=== PATIENT | male | born 1965 | race Caucasian/White ===

== ENCOUNTER 2017-01-17 07:22 | Outpatient (CLI) | payer BC ==
[2017-01-17 10:51] LABS: ALBUMIN/GLOBULIN RATIO 1.1 (1.0-2.2); BILIRUBIN,TOTAL 1.1 mg/dL (0.2-1.0); BUN - BLOOD UREA NITROGEN 15 mg/dL (6-20); CALCIUM 8.9 mg/dL (8.5-10.3); CARBON DIOXIDE - CO2 28 mmol/L (21-32); CHLORIDE 104 mmol/L (101-111); CHOL/HDL RATIO 5.2 (<5.0); CHOLESTEROL 167 mg/dL; CREATININE 0.8 mg/dL (0.6-1.2); GFR - MDRD 101 (>89); GLUCOSE 191 mg/dL (70-100); HDL CHOLESTEROL 32 mg/dL; LDL/HDL RATIO 3.8 (<3.6); SODIUM 138 mmol/L (135-145); TOTAL PROTEIN 7.1 g/dL (6.7-8.2); TRIGLYCERIDES 76 mg/dL; VLDL CHOLESTEROL 15 mg/dL
[2017-01-17 11:15] LABS: HEMOGLOBIN A1C 1.61 g/dL
== END 2017-01-17 07:23 | disposition home or self-care (01) ==
LOC: LAB.F 07:22
PROVIDERS: ATTEND Internal Medicine
DX: I10 Essential (primary) hypertension (principal)
CPT/HCPCS: 36415; 80053; 80061; 82043; 82570; 83036

== ENCOUNTER 2017-05-21 23:02 | Emergency (ER) | payer BC ==
--- NOTE | 2017-05-21 23:27 | ED Physician Documentation ---
PD HPI CHEST PAIN - Stated complaint Stated Complaint: SOA,TIGHTNESS CHEST - Chief complaint Chief Complaint: Cardiac - History obtained from History obtained from: Patient, Family - History of Present Illness Timing - onset: How many days ago (4) Timing - onset during: Exertion Timing - details: Gradual onset, Intermittant Quality: Pressure Location: Substernal, Left chest, Right chest Worsened by: Exertion Associated symptoms: No: Diaphoresis, Nausea, Vomiting, Feeling faint / dizzy Similar symptoms before: No diagnosis Recently seen: Not recently seen - Additional information Additional information: Patient is a 52 year old male with a history of diabetes, htn who is non compliant with all of his medications who is presenting to the emergency department for intermittent chest pain. According to patient and family over the last few days patient has had chest tightness with walking. Patient states that he has had upper respiratory symptoms over the past week. Patient states that he finally came in today because he told his about his symptoms and she made sure he came in for evaluation. Upon initial evaluation in the emergency department patient is resting comfortably and is chest pain free. Review of Systems Constitutional: denies: Fever, Chills Eyes: denies: Decreased vision Ears: denies: Ear pain, Drainage/discharge Nose: denies: Congestion Throat: denies: Sore throat Cardiac: reports: Chest pain / pressure. denies: Palpitations, Calf pain Respiratory: reports: Cough. denies: Wheezing GI: denies: Nausea, Vomiting : denies: Dysuria, Frequency Skin: denies: Rash Musculoskeletal: denies: Extremity pain, Extremity swelling Neurologic: denies: Generalized weakness, Focal weakness, Numbness, Headache, Head injury Immunocompromised: denies: Immunocompromised PD PAST MEDICAL HISTORY - Past Medical History Past Medical History: Yes Cardiovascular: Hypertension, High cholesterol Endocrine/Autoimmune: Type 1 diabetes - Allergies Allergies/Adverse Reactions: Allergies Allergy/AdvReac Type Severity Reaction Status Date / Time No Known Drug Allergies Allergy Verified 05/21/17 23:10 - Social History Does the pt smoke?: No Smoking Status: Never smoker Does the pt drink ETOH?: No Does the pt have substance abuse?: No - POLST Patient has POLST: No PD ED PE NORMAL - Vitals Vital signs reviewed: Yes - General General: Alert and oriented X 3, No acute distress - HEENT HEENT: Atraumatic, PERRL - Neck Neck: Supple, no meningeal sign, No JVD - Cardiac Cardiac: RRR, No murmur - Respiratory Respiratory: No respiratory distress, Clear bilaterally - Abdomen Abdomen: Soft, Non tender, Non distended - Derm Derm: Normal color, Warm and dry, No rash - Extremities Extremities: No deformity, Normal ROM s pain, No calf tenderness / cord - Neuro Neuro: Alert and oriented X 3, No motor deficit, No sensory deficit, Normal speech Eye Opening: Spontaneous Motor: Obeys Commands Verbal: Oriented GCS Score: 15 Results - Vitals Vitals: Vital Signs - 24 hr 05/21/17 05/22/17 23:06 01:30 Temperature 37 C Heart Rate 70 62 Respiratory 20 18 Rate Blood Pressure 155/83 H 137/75 H O2 Saturation 100 98 Oxygen O2 Source Room air - EKG (time done) 2313 Rate: Rate (enter#) (68) Rhythm: NSR [place]: Normal Intervals: Normal OR QRS: Normal Ischemia: Normal ST segments - Labs Labs: Laboratory Tests 05/21/17 05/21/17 05/21/17 23:30 23:30 23:30 WBC 12.6 H RBC 4.62 L Hgb 13.8 L Hct 42.9 MCV 92.9 MCH 30.0 MCHC 32.3 RDW 13.8 Plt Count 181 MPV 8.8 Neut # 8.3 H Lymph # 2.3 [place] # 1.2 H Eos # 0.6 Baso # 0.2 H Absolute Nucleated RBC 0.00 Nucleated RBC % 0.0 D-Dimer Sodium 138 Potassium 3.5 Chloride 103 Carbon Dioxide 26 Anion Gap 9.0 BUN 10 Creatinine 0.8 Estimated GFR (MDRD) 101 Glucose 121 H Glycated Hemoglobin 9.2 H Estim Average Glucose 217 H Calcium 8.7 Phosphorus 3.5 Magnesium 1.9 Total Bilirubin 0.2 AST 14 ALT 14 Alkaline Phosphatase 69 Troponin I B-Natriuretic Peptide Total Protein 6.8 Albumin 3.6 Globulin 3.2 Albumin/Globulin Ratio 1.1 Lipase 16 L 05/21/17 05/21/17 05/21/17 23:30 23:30 23:35 WBC RBC Hgb Hct MCV MCH MCHC RDW Plt Count MPV Neut # Lymph # [place] # Eos # Baso # Absolute Nucleated RBC Nucleated RBC % D-Dimer 174.9 L Sodium Potassium Chloride Carbon Dioxide Anion Gap BUN Creatinine Estimated GFR (MDRD) Glucose Glycated Hemoglobin Estim Average Glucose Calcium Phosphorus Magnesium Total Bilirubin AST ALT Alkaline Phosphatase Troponin I 0.04 B-Natriuretic Peptide 63 Total Protein Albumin Globulin Albumin/Globulin Ratio Lipase 05/22/17 01:06 WBC RBC Hgb Hct MCV MCH MCHC RDW Plt Count MPV Neut # Lymph # [place] # Eos # Baso # Absolute Nucleated RBC Nucleated RBC % D-Dimer Sodium Potassium Chloride Carbon Dioxide Anion Gap BUN Creatinine Estimated GFR (MDRD) Glucose Glycated Hemoglobin Estim Average Glucose Calcium Phosphorus Magnesium Total Bilirubin AST ALT Alkaline Phosphatase Troponin I < 0.04 B-Natriuretic Peptide Total Protein Albumin Globulin Albumin/Globulin Ratio Lipase - Rads (name of study) chest x-ray Radiology: Final report received (no acute abnormality) PD MEDICAL DECISION MAKING - ED course Complexity details: reviewed old records, reviewed results, re-evaluated patient , considered differential, d/w patient, d/w family ED course: Patient was seen and examined at bedside. patient was well appearing and in no acute distress. ekg was performed and showed normal sinus rhythm. labs were drawn. chest x-ray was performed and showed no acute abnormalities. Patient's diagnostics including repeat troponin, bnp and d dimer were all within normal limits. Patient's HEART score was three. Patient required no further inpatient treatment at this time and was stable for discharge with close outpatient follow up. Departure - Departure Disposition: 01 Home, Self Care Clinical Impression: Atypical chest pain Condition: Good Instructions: ED Chest Pain Atypical Unkn Cause Follow-Up: primary,care provider [Other] - Within 3 Days Comments: Your diagnostics today were within normal limits. there was no indication of acute heart attack, heart failure or blood clot. that being said this is a snap shot in time and you should follow up with your doctor for a stress test and echo-cardiogram. You should return to the emergency department at any time for new, worsening or uncontrollable symptoms.
[2017-05-21 23:48] LABS: BASOPHILS # (AUTO) 0.2 10^3/uL (0.0-0.1); BASOPHILS % (AUTO) 1.3 %; EOSINOPHILS # (AUTO) 0.6 10^3/uL (0.0-0.7); EOSINOPHILS % (AUTO) 4.7 %; HGB - HEMOGLOBIN 13.8 g/dL (14.0-18.0); LYMPHOCYTES # (AUTO) 2.3 10^3/uL (1.5-3.5); LYMPHOCYTES % (AUTO) 18.6 %; MEAN CORPUSCULAR HGB CONC 32.3 g/dL (32.0-36.0); MEAN CORPUSCULAR VOLUME 92.9 fL (80.0-94.0); MEAN PLATELET VOLUME 8.8 fL (7.4-11.4); MONOCYTES # (AUTO) 1.2 10^3/uL (0.0-1.0); MONOCYTES % (AUTO) 9.9 %; NEUTROPHILS # (AUTO) 8.3 10^3/uL (1.5-6.6); NEUTROPHILS % (AUTO) 65.5 %; PLT - PLATELET COUNT 181 10^3/uL (130-450); RED BLOOD COUNT 4.62 10^6/uL (4.70-6.10); RED CELL DISTRIBUTION WIDTH 13.8 % (12.0-15.0); WHITE BLOOD COUNT 12.6 x10^3/uL (4.8-10.8)
--- NOTE | 2017-05-21 23:49 | XRAY Report ---
EXAM: CHEST RADIOGRAPHY EXAM DATE: 05/21/2017 11:45 PM. CLINICAL HISTORY: Chest pain. COMPARISON: None. TECHNIQUE: 1 view. FINDINGS: Lungs/Pleura: No focal opacities evident. No pleural effusion. No pneumothorax. Mediastinum: Within exam limitations, the cardiomediastinal contour is normal. Other: None. IMPRESSION: Normal single view chest. [facility] Referring Provider Line: [phone] SITE ID: [id number]
[2017-05-22] LABS: ALBUMIN 3.6 g/dL (3.2-5.5); ALBUMIN/GLOBULIN RATIO 1.1 (1.0-2.2); BILIRUBIN,TOTAL 0.2 mg/dL (0.2-1.0); CALCIUM 8.7 mg/dL (8.5-10.3); CREATININE 0.8 mg/dL (0.6-1.2); MAGNESIUM 1.9 mg/dL (1.7-2.8); PHOSPHORUS 3.5 mg/dL (2.5-4.6); TOTAL PROTEIN 6.8 g/dL (6.7-8.2)
[2017-05-22 01:10] LABS: HEMOGLOBIN A1C 1.15 g/dL; HEMOGLOBIN A1C % 9.2 % (4.6-6.2)
[2017-05-22 01:31] VITALS: BP 137/75
== END 2017-05-22 02:07 | disposition home or self-care (01) ==
LOC: ED 23:02
DX: R07.89 Other chest pain (principal); I10 Essential (primary) hypertension; E78.5 Hyperlipidemia, unspecified; E10.9 Type 1 diabetes mellitus without complications; Z91.14 Patient's other noncompliance with medication regimen
CPT/HCPCS: 36415; 71045; 80053; 83036; 83690; 83735; 83880; 84100; 84484; 85025; 85379; 93005; 99283

== ENCOUNTER 2018-02-15 12:37 | Outpatient (CLI) | payer BC ==
[2018-02-15 18:16] LABS: BASOPHILS # (AUTO) 0.1 10^3/uL (0.0-0.1); BASOPHILS % (AUTO) 0.9 %; EOSINOPHILS # (AUTO) 0.4 10^3/uL (0.0-0.7); EOSINOPHILS % (AUTO) 3.7 %; LYMPHOCYTES # (AUTO) 1.9 10^3/uL (1.5-3.5); LYMPHOCYTES % (AUTO) 19.4 %; MEAN CORPUSCULAR HEMOGLOBIN 29.3 pg (27.0-31.0); MEAN CORPUSCULAR HGB CONC 33.3 g/dL (32.0-36.0); MEAN CORPUSCULAR VOLUME 88.2 fL (80.0-94.0); MEAN PLATELET VOLUME 9.6 fL (7.4-11.4); MONOCYTES # (AUTO) 0.8 10^3/uL (0.0-1.0); MONOCYTES % (AUTO) 7.8 %; NEUTROPHILS # (AUTO) 6.8 10^3/uL (1.5-6.6); NEUTROPHILS % (AUTO) 68.2 %; PLT - PLATELET COUNT 176 10^3/uL (130-450); RED BLOOD COUNT 4.76 10^6/uL (4.70-6.10); WHITE BLOOD COUNT 9.9 x10^3/uL (4.8-10.8)
[2018-02-15 19:23] LABS: HB2 TOTAL 14.6 g/dL; HEMOGLOBIN A1C 0.94 g/dL
== END 2018-02-15 12:38 | disposition home or self-care (01) ==
LOC: LAB.F 12:37
PROVIDERS: ATTEND Internal Medicine Endocrinology, Diabetes & Metabolism
DX: E10.69 Type 1 diabetes mellitus with other specified complication (principal)
CPT/HCPCS: 36415; 81599; 83036; 84402; 84403; 84443; 85025

== ENCOUNTER 2019-03-04 08:30 | Day surgery (SDC) | payer BC ==
[2019-03-04] MEDS ORDERED: LACTATED RINGERS 1,000 ML IV ONE (08:35)
[2019-03-04] MEDS ORDERED: fentaNYL 250 MCG/5 ML VIAL IVP ONE (10:21)
[2019-03-04] MEDS ORDERED: MIDAZOLAM 2 MG/2 ML VIAL IVP ONE (10:21)
[2019-03-04 11:12] VITALS: BP 99/53
== END 2019-03-04 08:31 | disposition home or self-care (01) ==
LOC: SDS 08:30
PROVIDERS: ATTEND Internal Medicine Gastroenterology
PROC: 0DBL8ZZ Excision of Transverse Colon, Via Natural or Artificial Opening Endoscopic (ICD-10-PCS; 2019-03-04)
PROC: 0DBP8ZZ Excision of Rectum, Via Natural or Artificial Opening Endoscopic (ICD-10-PCS; principal; 2019-03-04 10:00)
DX: Z12.11 Encounter for screening for malignant neoplasm of colon (principal); D12.3 Benign neoplasm of transverse colon; K62.1 Rectal polyp; E10.9 Type 1 diabetes mellitus without complications; I10 Essential (primary) hypertension; I25.10 Atherosclerotic heart disease of native coronary artery without angina pectoris; E66.9 Obesity, unspecified; Z68.30 Body mass index [BMI] 30.0-30.9, adult
CPT/HCPCS: 45380; J3010; J7120

== ENCOUNTER 2020-06-29 17:21 | Outpatient (CLI) | payer BC | END 2020-06-29 17:22 | disposition home or self-care (01) | LOC: COV 17:21 | PROVIDERS: ATTEND Family Medicine | DX: R50.9 Fever, unspecified (principal); Z20.822 Contact with and (suspected) exposure to COVID-19 ==

== ENCOUNTER 2020-09-16 19:14 | Emergency (ER) | payer BC ==
[2020-09-16 19:49] LABS: BASOPHILS # (AUTO) 0.1 10^3/uL (0.0-0.1); BASOPHILS % (AUTO) 0.3 %; EOSINOPHILS % (AUTO) 0.2 %; HCT - HEMATOCRIT 46.6 % (42.0-52.0); HGB - HEMOGLOBIN 15.4 g/dL (14.0-18.0); LYMPHOCYTES # (AUTO) 0.7 10^3/uL (1.5-3.5); LYMPHOCYTES % (AUTO) 4.9 %; MEAN CORPUSCULAR HEMOGLOBIN 29.7 pg (27.0-31.0); MEAN CORPUSCULAR VOLUME 89.8 fL (80.0-94.0); MEAN PLATELET VOLUME 9.6 fL (7.4-11.4); MONOCYTES # (AUTO) 0.8 10^3/uL (0.0-1.0); MONOCYTES % (AUTO) 5.6 %; NEUTROPHILS # (AUTO) 12.9 10^3/uL (1.5-6.6); NEUTROPHILS % (AUTO) 88.5 %; PLT - PLATELET COUNT 168 10^3/uL (130-450); RED BLOOD COUNT 5.19 10^6/uL (4.70-6.10); RED CELL DISTRIBUTION WIDTH 13.2 % (12.0-15.0); WHITE BLOOD COUNT 14.6 x10^3/uL (4.8-10.8)
[2020-09-16] MEDS ORDERED: SODIUM CHLORIDE 0.9% 1,000 ML IV STA ×2 (19:53→20:34)
[2020-09-16] MEDS ORDERED: ACETAMINOPHEN 325 MG TABLET PO STA (19:53)
[2020-09-16 20:03] LABS: BILIRUBIN,TOTAL 0.6 mg/dL (0.2-1.0); CREATININE 0.9 mg/dL (0.6-1.2); POTASSIUM 4.1 mmol/L (3.5-5.0); TOTAL PROTEIN 7.9 g/dL (6.7-8.2)
[2020-09-16 20:05] LABS: LACTIC ACID, VENOUS 3.2 mmol/L (0.5-2.2)
--- NOTE | 2020-09-16 20:06 | XRAY Report ---
PROCEDURE: Chest 1 View X-Ray INDICATIONS: fever TECHNIQUE: One view of the chest was acquired. COMPARISON: 05/21/2017 FINDINGS: Surgical changes and devices: Interval CABG. Lungs and pleura: No pleural effusions or pneumothorax. Lungs are clear. Mediastinum: Mediastinal contours appear normal. Heart size is normal. Bones and chest wall: No suspicious bony lesions. Overlying soft tissues appear unremarkable. IMPRESSION: No evidence acute pulmonary process. Reviewed by: Enzo Christianson MD on 09/16/2020 8:05 PM PDT Approved by: Enzo Christianson MD on 09/16/2020 8:05 PM PDT Station ID: [id number]
[2020-09-16 20:58] LABS: BILIRUBIN,URINE NEGATIVE (NEGATIVE); GLUCOSE, URINE (UA) >=1000 mg/dL (NEGATIVE); KETONES,URINE (UA) TRACE mg/dL (NEGATIVE); LEUKOCYTE ESTERASE, URINE NEGATIVE (NEGATIVE); NITRITE,URINE NEGATIVE (NEGATIVE); OCCULT BLOOD,URINE NEGATIVE (NEGATIVE); PH,URINE 5.5 PH (5.0-7.5); PROTEIN,URINE NEGATIVE (NEGATIVE); UROBILINOGEN,URINE 0.2 (NORMAL) E.U./dL (NORMAL)
[2020-09-16 21:00] LABS: CLARITY,URINE CLEAR (CLEAR)
[2020-09-16 21:07] LABS: BACTERIA,URINE Rare /HPF (None Seen); RBC,URINE None Seen /HPF (0-5); SQUAMOUS EPITHELIAL CELL,UR RARE Squamous (<= Few)
[2020-09-16 21:46] LABS: B. PARAPERTUSSIS- RESP PCR PAN NOT DETECTED; B. PERTUSSIS- RESP PCR PANEL NOT DETECTED; C. PNEUMONIAE- RESP PCR PANEL NOT DETECTED; CORONAVIRUS 229E-RESP PCR NOT DETECTED; CORONAVIRUS HKU1-RESP PCR NOT DETECTED; CORONAVIRUS NL63-RESP PCR NOT DETECTED; CORONAVIRUS OC43-RESP PCR NOT DETECTED; HUMAN METAPNEUMOVIRUS NOT DETECTED; INFLUENZA A- RESP PCR PANEL NOT DETECTED; INFLUENZA B - RESP PCR PANEL NOT DETECTED; M. PNEUMONIAE- RESP PCR PANEL NOT DETECTED; PARAINFLUENZA VIRUS 1 NOT DETECTED; PARAINFLUENZA VIRUS 2 NOT DETECTED; PARAINFLUENZA VIRUS 3 NOT DETECTED; PARAINFLUENZA VIRUS 4 NOT DETECTED; RHINOVIRUS/ENTEROVIRUS NOT DETECTED; RSV- RESP PCR PANEL NOT DETECTED; SARS-CoV-2 -RESP PCR PANEL NOT DETECTED
--- NOTE | 2020-09-17 | ED Physician Documentation ---
History of Present Illness - Stated complaint Stated Complaint: FEVER/CROWDER - Chief complaint Chief Complaint: Fever - History obtained from History obtained from: Patient, Family - Additonal information Additional information: Patient comes emergency department chief complaint of fever and malaise with right medial thigh pain that started a couple of days ago. Patient states that he had been going about his day as usual when in the evening he began to notice a sense of chills and tiredness. Patient states that he went to bed and felt better in the morning, but then began to feel the same way the next evening. Patient states that he did not have as much of an appetite as usual, but otherwise, did not have any focal symptoms, such as cough, shortness of breath, abdominal pain, nausea vomiting, or dysuria. Patient states he got his Covid vaccine within the last couple of months. Patient states that the pain in his right mid medial thigh is right over the area where venous harvesting was done for the patient's bypass surgery that he had a few years ago. He denies any redness or swelling/induration around the area. The patient and decided to have the patient see his PCP this morning. Patient's PCP felt the patient was tachycardic and his blood pressure was up, and was going to start metoprolol, but then felt the patient should be evaluated here. He did call me to relay this report. Patient states that he still has some general malaise but otherwise, denies complaints at this time. He has a diabetic, but is not immunocompromised otherwise. No sick contacts that patient knows of. Review of Systems Ten Systems: 10 systems reviewed and negative Constitutional: reports: Fever, Chills, Fatigue Eyes: reports: Reviewed and negative Ears: reports: Reviewed and negative Nose: reports: Reviewed and negative Throat: reports: Reviewed and negative Cardiac: reports: Reviewed and negative Respiratory: reports: Reviewed and negative. denies: Dyspnea, Cough GI: reports: Reviewed and negative. denies: Nausea, Vomiting : reports: Reviewed and negative Skin: reports: Reviewed and negative Musculoskeletal: reports: Extremity pain Neurologic: reports: Reviewed and negative Psychiatric: reports: Reviewed and negative Endocrine: reports: Reviewed and negative Immunocompromised: reports: Reviewed and negative PD PAST MEDICAL HISTORY - Past Medical History Past Medical History: Yes Cardiovascular: Hypertension, High cholesterol Endocrine/Autoimmune: Type 1 diabetes - Past Surgical History Past Surgical History: Yes Cardiovascular: CABG - Present Medications Home Medications: Ambulatory Orders Medication Instructions Recorded Confirmed Aspirin [Adult Low Dose Aspirin EC] 81 mg PO DAILY 03/04/19 09/16/20 Atorvastatin Calcium 80 mg PO DAILY 03/04/19 09/16/20 Insulin Aspart (Vial) [NovoLOG units SUBQ DAILY 03/04/19 (VIAL FOR ED USE)] Losartan Potassium 25 mg PO DAILY 03/04/19 09/16/20 Amlodipine Besylate [Norvasc] 10 mg PO DAILY 09/16/20 09/16/20 - Allergies Allergies/Adverse Reactions: Allergies Allergy/AdvReac Type Severity Reaction Status Date / Time lisinopril Allergy Mild Unknown Verified 09/16/20 19:22 - Social History Does the pt smoke?: No Smoking Status: Never smoker Does the pt drink ETOH?: No Does the pt have substance abuse?: No - POLST Patient has POLST: No PD ED PE NORMAL - Vitals Vital signs reviewed: Yes - General General: Alert and oriented X 3, No acute distress - HEENT HEENT: Atraumatic, PERRL, EOMI, Moist mucous membranes - Neck Neck: Supple, no meningeal sign - Cardiac Cardiac: RRR, No murmur, Strong equal pulses - Respiratory Respiratory: No respiratory distress, Clear bilaterally - Abdomen Abdomen: Soft, Non tender, Non distended - Back Back: No CVA TTP - Derm Derm: Normal color, Warm and dry, No rash - Extremities Extremities: No deformity, No edema, No calf tenderness / cord, Other (Tenderness over mid right medial thigh without mass, induration, fluctuance, or erythema. Tissue is soft and other than tenderness, is completely normal on exam.) - Neuro Neuro: Alert and oriented X 3, dental patient coordinator 2-12 intact, Normal speech, Other (Grossly normal otherwise.) - Psych Psych: Normal mood, Normal affect Results - Vitals Vitals: Oxygen O2 Source Room air - Labs Labs: Microbiology 09/16/20 19:44 Blood Culture - Preliminary Blood - Right Iv-Start NO GROWTH AFTER 2 DAYS 09/16/20 19:44 Blood Culture - Preliminary Blood - Left Arm NO GROWTH AFTER 2 DAYS Laboratory Tests 09/16/20 09/16/20 09/16/20 19:44 19:44 19:44 WBC 14.6 H RBC 5.19 Hgb 15.4 Hct 46.6 MCV 89.8 MCH 29.7 MCHC 33.0 RDW 13.2 Plt Count 168 MPV 9.6 Neut # (Auto) 12.9 H Lymph # (Auto) 0.7 L [place] # (Auto) 0.8 Eos # (Auto) 0.0 Baso # (Auto) 0.1 Absolute Nucleated RBC 0.00 Nucleated RBC % 0.0 Sodium 131 L Potassium 4.1 Chloride 97 L Carbon Dioxide 24 Anion Gap 10.0 BUN 16 Creatinine 0.9 Estimated GFR (MDRD) 87 L Glucose 195 H POC Whole Bld Glucose Lactic Acid 3.2 H* Calcium 9.0 Total Bilirubin 0.6 AST 26 ALT 35 Alkaline Phosphatase 82 Total Protein 7.9 Albumin 4.0 Globulin 3.9 Albumin/Globulin Ratio 1.0 Urine Color Urine Clarity Urine pH Ur Specific [place] Urine Protein Urine Glucose (UA) Urine Ketones Urine Occult Blood Urine Nitrite Urine Bilirubin Urine Urobilinogen Ur Leukocyte Esterase Urine RBC Urine WBC Ur Squamous Epith Cells Urine Bacteria Urine Culture Comments Nasal Adenovirus (PCR) Nasal B. parapertussis DNA (PCR) Nasal Coronavir 229E PCR Nasal Coronavir HKU1 PCR Nasal Coronavir NL63 PCR Nasal Coronavir OC43 PCR Nasal Enterovir/Rhinovir PCR Nasal Influenza B PCR Nasal Influenza A PCR Nasal Parainfluen 1 PCR Nasal Parainfluen 2 PCR Nasal Parainfluen 3 PCR Nasal Parainfluen 4 PCR Nasal RSV (PCR) Nasal B.pertussis DNA PCR Nasal C.pneumoniae (PCR) [place] Human Metapneumo PCR Nasal M.pneumoniae (PCR) Nasal SARS-CoV-2 (PCR) 09/16/20 09/16/20 09/16/20 20:18 20:46 20:49 WBC RBC Hgb Hct MCV MCH MCHC RDW Plt Count MPV Neut # (Auto) Lymph # (Auto) [place] # (Auto) Eos # (Auto) Baso # (Auto) Absolute Nucleated RBC Nucleated RBC % Sodium Potassium Chloride Carbon Dioxide Anion Gap BUN Creatinine Estimated GFR (MDRD) Glucose POC Whole Bld Glucose 175 H Lactic Acid Calcium Total Bilirubin AST ALT Alkaline Phosphatase Total Protein Albumin Globulin Albumin/Globulin Ratio Urine Color DARK YELLOW Urine Clarity CLEAR Urine pH 5.5 Ur Specific [place] >=1.030 H Urine Protein NEGATIVE Urine Glucose (UA) >=1000 H Urine Ketones TRACE Urine Occult Blood NEGATIVE Urine Nitrite NEGATIVE Urine Bilirubin NEGATIVE Urine Urobilinogen 0.2 (NORMAL) Ur Leukocyte Esterase NEGATIVE Urine RBC None Seen Urine WBC 4-5 Ur Squamous Epith Cells RARE Squamous Urine Bacteria Rare Urine Culture Comments NOT INDICATED Nasal Adenovirus (PCR) NOT DETECTED Nasal B. parapertussis DNA (PCR) NOT DETECTED Nasal Coronavir 229E PCR NOT DETECTED Nasal Coronavir HKU1 PCR NOT DETECTED Nasal Coronavir NL63 PCR NOT DETECTED Nasal Coronavir OC43 PCR NOT DETECTED Nasal Enterovir/Rhinovir PCR NOT DETECTED Nasal Influenza B PCR NOT DETECTED Nasal Influenza A PCR NOT DETECTED Nasal Parainfluen 1 PCR NOT DETECTED Nasal Parainfluen 2 PCR NOT DETECTED Nasal Parainfluen 3 PCR NOT DETECTED Nasal Parainfluen 4 PCR NOT DETECTED Nasal RSV (PCR) NOT DETECTED Nasal B.pertussis DNA PCR NOT DETECTED Nasal C.pneumoniae (PCR) NOT DETECTED [place] Human Metapneumo PCR NOT DETECTED Nasal M.pneumoniae (PCR) NOT DETECTED Nasal SARS-CoV-2 (PCR) NOT DETECTED 09/16/20 22:50 WBC RBC Hgb Hct MCV MCH MCHC RDW Plt Count MPV Neut # (Auto) Lymph # (Auto) [place] # (Auto) Eos # (Auto) Baso # (Auto) Absolute Nucleated RBC Nucleated RBC % Sodium Potassium Chloride Carbon Dioxide Anion Gap BUN Creatinine Estimated GFR (MDRD) Glucose POC Whole Bld Glucose Lactic Acid 1.2 Calcium Total Bilirubin AST ALT Alkaline Phosphatase Total Protein Albumin Globulin Albumin/Globulin Ratio Urine Color Urine Clarity Urine pH Ur Specific [place] Urine Protein Urine Glucose (UA) Urine Ketones Urine Occult Blood Urine Nitrite Urine Bilirubin Urine Urobilinogen Ur Leukocyte Esterase Urine RBC Urine WBC Ur Squamous Epith Cells Urine Bacteria Urine Culture Comments Nasal Adenovirus (PCR) Nasal B. parapertussis DNA (PCR) Nasal Coronavir 229E PCR Nasal Coronavir HKU1 PCR Nasal Coronavir NL63 PCR Nasal Coronavir OC43 PCR Nasal Enterovir/Rhinovir PCR Nasal Influenza B PCR Nasal Influenza A PCR Nasal Parainfluen 1 PCR Nasal Parainfluen 2 PCR Nasal Parainfluen 3 PCR Nasal Parainfluen 4 PCR Nasal RSV (PCR) Nasal B.pertussis DNA PCR Nasal C.pneumoniae (PCR) [place] Human Metapneumo PCR Nasal M.pneumoniae (PCR) Nasal SARS-CoV-2 (PCR) - Rads (name of study) Chest x-ray Radiology: Final report received, EMP read indepedently, See rad report (neg) Venous duplex right leg Radiology: Final report received, EMP read indepedently, See rad report (small, nonspecific fluid collection; no dvt) PD MEDICAL DECISION MAKING - ED course Complexity details: reviewed results, re-evaluated patient, considered differential, d/w patient ED course: The patient was treated symptomatically with antipyretics and IV fluids in the emergency department. He was worked up broadly with labs, urinalysis, chest x- ray, respiratory panel, and duplex ultrasound of the right lower extremity. His initial lactic acid level was 3.1, and the patient was given a second liter of fluid while completing his evaluation. The patient's work-up was entirely negative otherwise. The patient had been is back the patient had been stable in the emergency department and did defervesce well with the medication. Repeat lactic acid level was completely normal. I discussed with the patient, who looked much better, and that his work-up has been completely negative and that at this point in time, I suspect a viral illness. The patient does have blood cultures pending and we have discussed that he will be notified if these come back positive. The patient would like to go home and I feel this is reasonable. We have discussed that he needs to have a low threshold for returning should he begin to feel worse at all. Departure - Departure Disposition: 01 Home, Self Care Clinical Impression: Dehydration Fever Qualifiers: Fever type: unspecified Qualified Code(s): R50.9 - Fever, unspecified Condition: Stable Instructions: ED Fever Unconf Cause, ED Fever Control Comments: Extensive evaluation to determine the cause of your fever revealed no definite cause tonight. Your labs, overall, looked good though you had a mild elevation of your white blood cell count. Your initial lactic acid level, which can be elevated in sepsis or other conditions, was somewhat elevated initially, but improved very well with IV fluids. Your urinalysis showed that your urine was quite concentrated, indicating dehydration. You have been treated with 2 L of IV fluid here in the emergency department for this. Your urinalysis, chest x- ray, and viral panel were all negative. The only thing that is still pending at this time are your blood cultures, which will be back tomorrow. If these come back positive for bacteria, you will be called at home. The ultrasound of your leg did not show any blood clots. There was a small fluid collection in the area of the pain, but this does not appear to be an infection. 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 You may take Tylenol and ibuprofen to help with the fevers. The Tylenol you may take 650 mg every 4 hours and ibuprofen 600 mg every 6 hours, as needed for fever. You may take both of these at the same time. If you feel as though your condition is worsening, please do not hesitate to seek reevaluation. However, at this point in time, there is no evidence of an emergent condition, and you are stable for discharge home Discharge Date/Time: 09/17/20 00:25
[2020-09-17 00:02] VITALS: BP 132/68
--- NOTE | 2020-09-17 08:12 | Ultrasound Report ---
PROCEDURE: Duplex Ext Veins Left INDICATIONS: Left leg pain, fever TECHNIQUE: Real-time imaging, as well as color and pulse Doppler interrogation, were performed of the lower extr emity deep veins from the inguinal ligament to the popliteal fossa. COMPARISON: None. FINDINGS: The deep veins are normally compressible, and free of intraluminal thrombus. Color and pu lse Doppler demonstrate normal phasic intraluminal flow. There is normal augmentation response to di stal compression maneuver. There is a 3.1 x 1.7 cm fluid collection in the medial thigh. There are t hreshold enlarged lymph nodes in the thigh and inguinal region. IMPRESSION: No sonographic evidence of DVT. Nonspecific 3.1 x 1.7 cm fluid collection in the medial thigh, potentially seroma, abscess, or necrot ic lymph node. Multiple threshold enlarged lymph nodes in the medial left thigh and inguinal region. Reviewed by: Eliot Weiss MD on 09/17/2020 8:11 AM PDT Approved by: Eliot Weiss MD on 09/17/2020 8:11 AM PDT Station ID: [id number]
== END 2020-09-17 00:25 | disposition home or self-care (01) ==
LOC: ED 19:14
DX: E86.0 Dehydration (principal); R50.9 Fever, unspecified; M79.651 Pain in right thigh; Z20.822 Contact with and (suspected) exposure to COVID-19; I10 Essential (primary) hypertension; E10.9 Type 1 diabetes mellitus without complications; Z95.1 Presence of aortocoronary bypass graft; Z79.82 Long term (current) use of aspirin
CPT/HCPCS: 0202U; 36415; 71045; 80053; 81001; 83605; 85025; 87040; 93971; 96360; 96361; 99284; A9270; 87086

== ENCOUNTER 2020-09-30 08:00 | Outpatient (CLI) | payer BC | END 2020-09-30 08:01 | disposition home or self-care (01) | LOC: LAB.F 08:00 | PROVIDERS: ATTEND Internal Medicine | DX: L02.416 Cutaneous abscess of left lower limb (principal) | CPT/HCPCS: 87070; 87205 ==

== ENCOUNTER 2021-01-31 12:37 | Outpatient (CLI) | payer BC ==
[2021-01-31 20:35] LABS: ESTIMATED AVERAGE GLUCOSE 252 mg/dL (70-100); HEMOGLOBIN A1c% 10.4 % (4.27-6.07)
[2021-02-02 11:01] LABS: IMMUNOGLOBULIN A 409 mg/dL (47-310); IMMUNOGLOBULIN G 1228 mg/dL (600-1640); IMMUNOGLOBULIN M 59 mg/dL (50-300)
== END 2021-01-31 12:38 | disposition home or self-care (01) ==
LOC: LAB.S 12:37
PROVIDERS: ATTEND Internal Medicine
DX: E10.9 Type 1 diabetes mellitus without complications (principal); B96.89 Other specified bacterial agents as the cause of diseases classified elsewhere
CPT/HCPCS: 36415; 82784; 83036

== ENCOUNTER 2022-11-21 08:00 | Outpatient (CLI) | payer BC ==
--- NOTE | 2022-11-21 15:45 | XRAY Report ---
PROCEDURE: Shoulder 3 View RT INDICATIONS: RIGHT SHOULDER PAIN TECHNIQUE: 2 views of the shoulder were acquired. COMPARISON: None. FINDINGS: Bones: No fractures or dislocations. No suspicious bony lesions. Visualized ribs appear intact. Mild to moderate acromioclavicular degenerative narrowing. Soft tissues: No suspicious soft tissue calcifications. IMPRESSION: No visualized acute fracture or dislocation. However, occult injury cannot be excluded. Recommend natalio rt interval imaging follow-up in 7-10 days as clinically indicated for additional evaluation. Reviewed by: Irma Ahuja MD on 11/21/2022 3:44 PM PDT Approved by: Irma Ahuja MD on 11/21/2022 3:44 PM PDT Station ID: [id number]
== END 2022-11-21 23:59 | disposition home or self-care (01) ==
LOC: DI.WOS 08:00
PROVIDERS: ATTEND Physician Assistant Surgical
DX: M19.011 Primary osteoarthritis, right shoulder (principal)

== ENCOUNTER 2023-03-01 07:15 | Outpatient (CLI) | payer BC, OTHER | END 2023-03-01 07:16 | disposition home or self-care (01) | LOC: LAB.S 07:15 | PROVIDERS: ATTEND Nurse Practitioner | DX: E03.8 Other specified hypothyroidism (principal) | CPT/HCPCS: 36415; 84443 ==